=== PATIENT | male | born 1945 | race Caucasian/White ===

== ENCOUNTER 2017-05-21 14:27 | Emergency (ER) | payer OTHER ==
[~2017-05-21] VITALS: Ht 170.2 cm; Wt 92.1 kg
[2017-05-21] MEDS ORDERED: SYNTHROID50 MCG (15:23)
[2017-05-21] MEDS ORDERED: SYNTHROID125 MCG (15:24)
[2017-05-21] MEDS ORDERED: SYNTHROID137 MCG (15:56)
[2017-05-21] MEDS ORDERED: AMARYL (15:56)
[2017-05-21] MEDS ORDERED: TRICOR145 MG (15:57)
== END 2017-05-21 20:13 | disposition home or self-care (01) ==
LOC: ER 14:27
DX: N20.1 Calculus of ureter (principal)

== ENCOUNTER 2017-06-04 07:32 | Outpatient (CLI) | payer OTHER ==
[~2017-06-04 07:32] MED LIST: AMARYL; SYNTHROID125 MCG; SYNTHROID137 MCG; SYNTHROID50 MCG; TRICOR145 MG
== END 2017-06-04 07:44 | disposition home or self-care (01) ==
LOC: SONOGRAMA 07:32
DX: N20.0 Calculus of kidney (principal); N13.30 Unspecified hydronephrosis

== ENCOUNTER 2017-06-04 07:34 | Outpatient (CLI) | payer OTHER | END 2017-06-04 07:45 | disposition home or self-care (01) | LOC: RAD 07:34 | DX: N20.0 Calculus of kidney (principal); N13.30 Unspecified hydronephrosis ==

== ENCOUNTER 2023-05-21 15:16 | Emergency (ER) | payer OTHER ==
[~2023-05-21] VITALS: Ht 162.6 cm; Wt 86.2 kg
[2023-05-21] MEDS ORDERED: GLIMEPIRIDE1 MG (15:33)
[2023-05-21] MEDS ORDERED: BRILINTA90 MG (15:33)
[2023-05-21] MEDS ORDERED: COZAAR50 MG (15:33)
[2023-05-21] MEDS ORDERED: ATORVASTATIN CA40 MG (15:34)
== END 2023-05-21 19:04 | disposition home or self-care (01) ==
LOC: ER 15:16
DX: S80.11XA Contusion of right lower leg, initial encounter (principal); T14.8XXA Other injury of unspecified body region, initial encounter; X58.XXXA Exposure to other specified factors, initial encounter; Y93.89 Activity, other specified; Y92.89 Other specified places as the place of occurrence of the external cause; Y99.8 Other external cause status; Z88.0 Allergy status to penicillin; Z91.013 Allergy to seafood